=== PATIENT | male | born 1990 | race Caucasian/White ===

== ENCOUNTER 2020-01-20 10:51 | Outpatient (CLI) | payer OTHER, SELFPAY ==
[2020-01-20 11:00] LABS: Collection Time Urine 24 HOURS
[2020-01-20 11:08] LABS: Basophils Absolute Auto 0.05 K/mm3 (0.00-0.10); Basophils Percent Auto 0.4 % (0.0-1.0); Eosinophils Absolute Auto 0.47 K/mm3 (0.02-0.50); Eosinophils Percent Auto 3.8 % (1.0-6.0); Hemoglobin 9.6 g/dL (14.0-18.0); Immature Granulocyte Absolute 0.06 K/mm3 (0.00-0.00); Immature Granulocyte Percent A 0.5 % (0.0-0.0); Lymphocytes Absolute Auto 2.49 K/mm3 (1.10-4.50); Lymphocytes Percent Auto 20.1 % (18.0-42.0); Mean Corpuscular HGB Conc 33.1 g/dL (32.0-36.0); Mean Corpuscular Hemoglobin 30.3 pg (27.0-31.0); Mean Corpuscular Volume 91.5 fL (78.0-102.0); Mean Platelet Volume 9.5 fl (8.7-11.0); Monocytes Absolute Auto 0.56 K/mm3 (0.10-0.90); Monocytes Percent Auto 4.5 % (2.0-11.0); Neutrophils Absolute Auto 8.7 K/mm3 (1.7-7.2); Neutrophils Percent Auto 70.7 % (50.0-70.0); Platelet Count Result 349 K/mm3 (150-420); Red Blood Count 3.17 M/mm3 (4.70-6.10); Red Cell Distribution Width 14.4 % (11.6-14.4); White Blood Count 12.4 K/mm3 (4.8-10.8)
[2020-01-20 11:23] LABS: Creatinine Urine 54.79 mg/dL (40-278); Patient Weight 232 Lbs
[2020-01-20 11:43] LABS: Albumin Level 3.8 g/dL (3.4-5.0); Anion Gap 18 mmol/L (8-16); Blood Urea Nitrogen 114 mg/dL (7-18); Calcium 9.8 mg/dL (8.5-10.1); Carbon Dioxide 17 mmol/L (21-32); Chloride 102 mmol/L (98-108); Creatinine Clearance Urine 4.3 ml/min (97-137); Estimated Glomerular Filt Rate 4; Glucose 145 mg/dL (70-99); Osmolality Calculated 323 mOsm/kg (285-295); Potassium 4.3 mmol/L (3.5-5.1); Serum Creat 13.62; Sodium 137 mmol/L (136-145); Total Volume 24 Hour Urine 2000 ml
[2020-01-20 11:46] LABS: Phosphorus > 8.0 mg/dL (2.6-4.7)
== END 2020-01-20 10:52 | disposition home or self-care (01) ==
LOC: CHSLAB 10:53
PROVIDERS: PCP Internal Medicine; Visit Provider Internal Medicine Nephrology
DX: I12.0 Hypertensive chronic kidney disease with stage 5 chronic kidney disease or end stage renal disease (principal); D63.1 Anemia in chronic kidney disease; N25.81 Secondary hyperparathyroidism of renal origin; N18.5 Chronic kidney disease, stage 5
CPT/HCPCS: 36415; 80069; 82575; 85025

== ENCOUNTER 2020-03-25 13:18 | Outpatient (CLI) | payer OTHER, SELFPAY ==
[2020-03-25 13:44] LABS: SARS-CoV-2 Ag Negative (Negative)
== END 2020-03-25 13:19 | disposition home or self-care (01) ==
LOC: CHSLAB 13:19
PROVIDERS: PCP Internal Medicine; Visit Provider Internal Medicine
DX: Z01.818 Encounter for other preprocedural examination (principal); Z20.828 Contact with and (suspected) exposure to other viral communicable diseases
CPT/HCPCS: 87426

== ENCOUNTER 2020-09-18 12:57 | Outpatient (CLI) | payer MEDICARE, MEDICAID, SELFPAY ==
[2020-09-18 13:25] LABS: Anion Gap 16 mmol/L (8-16); Blood Urea Nitrogen 80 mg/dL (7-18); Carbon Dioxide 23 mmol/L (21-32); Chloride 97 mmol/L (98-108); Estimated Glomerular Filt Rate 4; Glucose 98 mg/dL (70-99); Osmolality Calculated 306 mOsm/kg (285-295); Phosphorus 7.7 mg/dL (2.6-4.7); Sodium 136 mmol/L (136-145)
[2020-09-18 13:28] LABS: Calcium 5.2 mg/dL (8.5-10.1)
== END 2020-09-18 12:58 | disposition home or self-care (01) ==
LOC: CHSLAB 13:01
PROVIDERS: PCP Internal Medicine; Visit Provider Internal Medicine Nephrology
DX: N18.6 End stage renal disease (principal)
CPT/HCPCS: 36415; 80069

== ENCOUNTER 2021-01-30 15:34 | Emergency (ER) | payer MEDICARE, MEDICAID, SELFPAY ==
--- NOTE | 2021-01-30 15:54 | ED_ITS ---
HPI - CPR General Chief Complaint: Cardiac Arrest/CPR Stated Complaint: on arrival Time Seen by Provider: 01/30/21 15:35 History of Present Illness HPI narrative: The patient was found unresponsive. EMS was summoned and they found him unresponsive to all stimuli. He received Narcan after placement of a left IO line. He was brought to the ER if while being ventilated with an Ambu bag had ongoing chest compressions. On examination the patient was found to be cool to touch. He was noted to be unresponsive to all stimuli. He had dilated fixed pupils. No palpable pulses or Heart sounds with noted. no spontaneous breathing. The patient was pronounced at 3:36 p.m. complaint: found unresponsive Onset (ago): unknown Place: home Bystander CPR performed: No Initial findings in the field: unresponsive ROSC in the field: No Associated injuries: Yes ( bruising of his right elbow and right arm) Known history of: other ( renal failure on peritoneal dialysis) Treatments prior to arrival: chest compressions and other ( Narcan) Exam Narrative: patient was noted to be unresponsive. Absent pupillary reflexes. No palpable pulse. No heart sounds. No spontaneous respirations. Patient was pronounced on arrival. Course Course Emergency Course: [employer] Roofer notified Discharge Plan Discharge Clinical Impression: Sudden cardiac Patient Disposition: Condition: Follow-up/Referrals: Arcihe Toro MD [Primary Care Provider] - Time of Disposition: 15:36
--- NOTE | 2021-01-30 16:39 | PC.NURSE ---
1534 see code sheet
== END 2021-01-30 18:43 | disposition expired ==
PROVIDERS: Emergency Provider Internal Medicine Critical Care Medicine; PCP Internal Medicine
DX: I46.9 Cardiac arrest, cause unspecified (principal)
CPT/HCPCS: 92950; 99285